=== PATIENT | male | born 1975 | race Caucasian/White ===

== ENCOUNTER 2022-03-03 11:38 | Emergency (ER) | payer OTHER ==
[~2022-03-03] VITALS: Ht 170.2 cm; Wt 68.9 kg
--- NOTE | 2022-03-03 12:04 | NUR ---
Pt c/o moderate to severe right elbow swelling, small bruise evident, with 8/10 pain and extreme tenderness. Pt denies any injury or trauma, distal PMS intact. Pt denies CP, SOB, dizziness, n/v, no other complaints, minor distress noted on movement.
--- NOTE | 2022-03-03 12:38 | NUR ---
Wrapped elbow in elastic bandage w/2x2 gauze, per . Gave pt d/c instructions, pt verbalized understanding.
[2022-03-03] MEDS ORDERED: CEPH500C2 PO (18:19)
[2022-03-03] MEDS ORDERED: SULF1TAB48 PO (18:19)
== END 2022-03-03 12:41 | disposition home or self-care (01) ==
LOC: ER 11:53
DX: M70.21 Olecranon bursitis, right elbow (principal)
CPT/HCPCS: 36415; 83986; 87070; 87077; 87205; A4663